=== PATIENT | male | born 1980 | race Caucasian/White ===

== ENCOUNTER 2019-12-04 23:41 | Emergency (ER) | payer OTHER, SELFPAY ==
[2019-12-04 23:45] VITALS: BP 132/84; PULSE 93; RESP 20; TEMP 36.6; O2SAT 99
--- NOTE | 2019-12-05 01:17 | ED.SKABFB ---
HPI - Skin/Abscess/Foreign Bdy General Chief complaint: Skin/Abscess/Foreign Body Stated complaint: facial swelling Time Seen by Provider: 12/05/19 01:14 Source: patient Mode of arrival: ambulatory Limitations: no limitations History of Present Illness HPI narrative: 39-year-old with no major medical problems here with complaints of left-sided facial swelling for past few days. Patient states that he accidentally nicked himself while he was shaving. Now just face is all swollen no previous history of any staph infections. Patient states that he has been applying ice. Denies any fever or chills. MD complaint: abscess/boil Onset (ago): day(s) Location: face (Left side of the face) Severity: moderate Severity scale (1-10): 4 Pain Consistency: constant Relieving factors: none Exacerbating factors: none Related Data Allergies Allergy/AdvReac Type Severity Reaction Status Date / Time codeine Allergy Mild Unknown Verified 12/04/19 23:43 erythromycin base Allergy Mild Unknown Verified 12/04/19 23:43 PROPOXYPHENE NAPSYLATE Allergy Unknown Unknown Uncoded 12/04/19 23:43 Review of Systems Review of Systems: All systems reviewed & are unremarkable except as noted in HPI and below Constitutional: Constitutional: Reports no additional constitutional complaints Eyes: Eyes: Reports no additional eye complaints ENT: Reports system reviewed and no additional complaints, except as documented Cardiovascular: Cardiovascular: Reports no additional cardiovascular complaints Respiratory: Respiratory: Reports no additional respiratory complaints Gastrointestinal: Gastrointestinal: Reports no additional gastrointestinal complaints PMFSH Past Medical History Medical History Back pain Dental abscess GERD (gastroesophageal reflux disease) Surgical History Surgical History Hx of appendectomy Hx of cholecystectomy Hx of right knee surgery Social History Social History Smoking status: Current every day smoker Gender identity (if verbalized by the patient): Male Exam Narrative: Exam Narrative: GENERAL: Well-appearing, well-nourished, and in no acute distress. HEAD: Normocephalic, atraumatic. There is a small boil on the left side of the face, the maxillary area is all erythematous and swollen but no definite abscess. Nontender to touch. EYES: PERRLA and EOMI. ENT: Nares clear, no rhinorrhea or epistaxis. Mucous membranes moist. NECK: Supple. CHEST: Clear to auscultation. No respiratory distress. HEART: Regular rate and rhythm. No murmur heard. Normal peripheral pulses.. EXTREMITIES: Normal range of motion. No edema. SKIN: Warm, dry, no rash. NEURO: No focal deficits. Alert and oriented x3. PSYCH: Normal mood and affect. Course Vital Signs Vital signs: Vital Signs Temperature 36.6 C 12/04/19 23:45 Pulse Rate 93 12/04/19 23:45 Respiratory Rate 12/04/19 23:45 Blood Pressure 132/84 12/04/19 23:45 Pulse Oximetry 99 12/04/19 23:45 Temperature 36.6 C 12/04/19 23:45 Pulse Rate 93 12/04/19 23:45 Respiratory Rate 12/04/19 23:45 Blood Pressure 132/84 12/04/19 23:45 Pulse Oximetry 99 12/04/19 23:45 MDM - Skin/Abscess/Foreign Bdy MDM Narrative Medical decision making narrative: Since his swelling is mild at this time however is mild swelling of the left side of the upper lip start him on oral antibiotic. Advised him to apply warm compress in case there is increased swelling or redness advised him to return to the ER forIV antibiotic Discharge Plan Discharge Clinical Impression: Cellulitis Patient Disposition: Home, Self-Care Condition: Stable Instructions: Antibiotic Form, Cellulitis (DC) Prescriptions: New clindamycin HCl 300 mg capsule 300 mg PO Q8H Qty: 30 RF: 0 ibuprofen 600 mg tablet 600 mg
== END 2019-12-05 01:36 | disposition home or self-care (01) ==
LOC: ANHED 12-05 01:24
PROVIDERS: Emergency Provider Family Medicine; PCP Pathology Hematology
DX: L03.211 Cellulitis of face (principal)
CPT/HCPCS: 99283

== ENCOUNTER 2020-10-11 10:52 | Emergency (ER) | payer OTHER, SELFPAY ==
[2020-10-11 10:59] VITALS: BP 137/89; PULSE 113; RESP 18; TEMP 36.6; O2SAT 98
--- NOTE | 2020-10-11 12:17 | ED.EXTPRO ---
HPI - Extremity Problem General Chief complaint: Recheck/Abnormal Lab/Rx Stated complaint: gout flare up Time Seen by Provider: 10/11/20 12:08 History of Present Illness HPI Narrative: Left foot pain for the past 3 days. Starts at the base of the fifth toe and radiates proximally. Severe. Similar to previous gout flares. He is not on any medications. Related Data Allergies Allergy/AdvReac Type Severity Reaction Status Date / Time codeine Allergy Mild Unknown Verified 10/11/20 11:17 erythromycin base Allergy Mild Unknown Verified 10/11/20 11:17 PROPOXYPHENE NAPSYLATE Allergy Unknown Unknown Uncoded 10/11/20 11:17 Review of Systems Review of Systems: All systems reviewed & are unremarkable except as noted in HPI and below Constitutional: Constitutional: Denies fever(s) Cardiovascular: Cardiovascular: Denies chest pain Respiratory: Respiratory: Denies dyspnea Gastrointestinal: Gastrointestinal: Denies nausea PMFSH Past Medical History Medical History Back pain Dental abscess GERD (gastroesophageal reflux disease) Surgical History Surgical History Hx of appendectomy Hx of cholecystectomy Hx of right knee surgery Social History Social History Smoking status: Current every day smoker Gender identity (if verbalized by the patient): Male Exam Const: General: no acute distress and alert Orientation/consciousness: patient oriented x3 HENMT: Head: normal to inspection Resp: Effort & Inspection: normal respiratory effort Auscultation: clear to auscultation bilaterally Cardio: Rate: regular rate Rhythm: regular rhythm Skin: General skin exam: normal color Rashes: no rashes Wounds: no wounds Neuro: General: patient oriented x3, moves all extremities and no focal motor deficits Extrem: Other: tender left lateral foot. Mild tophi formation. minimal swelling. No erythema. Course Vital Signs Vital signs: Vital Signs Temperature 36.6 C 10/11/20 10:59 Pulse Rate 113 H 10/11/20 10:59 Respiratory Rate 18 10/11/20 10:59 Blood Pressure 137/89 10/11/20 10:59 Pulse Oximetry 98 10/11/20 10:59 Temperature 36.6 C 10/11/20 10:59 Pulse Rate 98 10/11/20 12:33 Respiratory Rate 16 10/11/20 12:33 Blood Pressure 132/84 10/11/20 12:33 Pulse Oximetry 99 10/11/20 12:33 Discharge Plan Discharge Clinical Impression: Gout flare Qualifiers: Gout site: foot Patient Disposition: Home, Self-Care Condition: Stable Instructions: Gout (ED) Prescriptions: New hydrocodone-acetaminophen 5-325 mg tablet 1 tablet PO Q6H PRN (Reason: pain) Qty: 8 RF: 0 prednisone 20 mg tablet 40 mg PO DAILY 6 Days Qty: 12 RF: 0 Follow-up/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
[2020-10-11] MEDS: HYDROcodone/acetaminophen (*CRX) 5-325 MG TABLET 2 TAB PO (12:20)
[2020-10-11] MEDS: predniSONE 20 MG TABLET 40 MG PO (12:21)
[2020-10-11 12:33] VITALS: BP 132/84; PULSE 98; RESP 16; O2SAT 99
== END 2020-10-11 12:30 | disposition home or self-care (01) ==
PROVIDERS: Emergency Provider Emergency Medicine
DX: M10.9 Gout, unspecified (principal); K21.9 Gastro-esophageal reflux disease without esophagitis; F17.200 Nicotine dependence, unspecified, uncomplicated
CPT/HCPCS: 99283; A9270; J7512

== ENCOUNTER 2020-11-17 16:00 | Outpatient (CLI) | payer OTHER, SELFPAY ==
--- NOTE | ~2020-11-17 | US_ITS ---
EXAMINATION: US scrotum doppler DATE: 11/17/2020 17:03 INDICATION: Small left testicle. 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 TECHNIQUE: Grayscale and Doppler ultrasound images of the testes were obtained. COMPARISON: None. FINDINGS: The right testis measures 3.9 x 2.1 x 3.5. The left testis measures 4.9 x 2.1 x 1.8. The le ft testis has areas of hypoechogenicity. There is normal vascular flow to both testes. The right epid idymis is normal with normal vascular flow. The left epididymis is normal with normal vascular flow. There is no varicocele or hydrocele. IMPRESSION: 1. 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 Reviewed, dictated and finalized at location A.
== END 2020-11-17 16:01 | disposition home or self-care (01) ==
LOC: ANHIMG 16:08
PROVIDERS: PCP Emergency Medicine; Visit Provider Emergency Medicine
DX: N50.89 Other specified disorders of the male genital organs (principal)
CPT/HCPCS: 76870; 93976

== ENCOUNTER 2021-01-24 11:54 | Emergency (ER) | payer OTHER, SELFPAY ==
--- NOTE | ~2021-01-24 | XR_ITS ---
EXAMINATION: XR foot LT min 3V DATE: 01/24/2021 12:52 INDICATION: Nontraumatic left heel pain and erythema TECHNIQUE: Dorsoplantar, two oblique and lateral views of the left foot were obtained. COMPARISON: None. FINDINGS: There is valgus angulation at the left second distal interphalangeal joint which results from shorten ing of the lateral side of the middle phalanx which could be either developmental or sequela of old t rauma. Alignment is otherwise normal. No acute fracture. Joint spaces are normal. Small Achilles and plantar calcaneal spurs. No periosteal reaction or cortical erosions. Soft tissues are unremarkable. IMPRESSION: 1. Small Achilles and plantar calcaneal spurs. No acute osseous abnormality. Reviewed, dictated and finalized at location A.
[2021-01-24 12:02] VITALS: BP 129/88; PULSE 75; RESP 18; TEMP 35.8; O2SAT 99
--- NOTE | 2021-01-24 12:42 | ED.LOWEXIN ---
HPI - Extremity Injury (Lower) General Chief Complaint: Extremity Injury, Lower Stated Complaint: L heel injury Time Seen by Provider: 01/24/21 12:03 Source: patient Mode of arrival: ambulatory Limitations: no limitations History of Present Illness HPI Narrative: This is a 41 year old male that presents to the ER for left heel pain noted over the last couple of days. Reports an area of redness to the posterior foot. Reports the area is painful. No recent injury or trauma. Denies fever, decreased ROM or numbness. Related Data Allergies Allergy/AdvReac Type Severity Reaction Status Date / Time codeine Allergy Mild Unknown Verified 10/11/20 11:17 erythromycin base Allergy Mild Unknown Verified 10/11/20 11:17 PROPOXYPHENE NAPSYLATE Allergy Unknown Unknown Uncoded 10/11/20 11:17 Review of Systems Review of Systems: CONSTITUTIONAL: Denies fever SKIN: Reports redness MUSCULOSKELETAL: Denies joint pain, or myalgia. NEUROLOGIC: Denies numbness All systems reviewed & are unremarkable except as noted in HPI and below PMFSH Past Medical History Medical History (Updated 01/24/21 @ 14:25 by Mamta Malik PA-C) Back pain Dental abscess GERD (gastroesophageal reflux disease) Surgical History Surgical History Hx of appendectomy Hx of cholecystectomy Hx of right knee surgery Social History Social History Smoking status: Current every day smoker Gender identity (if verbalized by the patient): Male Exam Narrative: GENERAL: Well-appearing, well-nourished, and in no acute distress. HEAD: Normocephalic, atraumatic. EYES: EOMI. EXTREMITIES: Normal range of motion. No edema or obvious deformity. Normal DP pulses. Normal sensation. Area around the insertion of the Achilles tendon with mild erythema and swelling. Achilles tendon itself is not tender to palpation, without erythema or warmth SKIN: Warm, dry, no rash. NEURO: No focal deficits. Alert and oriented x3. PSYCH: Normal mood and affect Course Vital Signs Vital signs: Vital Signs Temperature 96.5 F L 01/24/21 12:02 Pulse Rate 75 01/24/21 12:02 Respiratory Rate 18 01/24/21 12:02 Blood Pressure 129/88 01/24/21 12:02 Pulse Oximetry 99 01/24/21 12:02 Temperature 96.5 F L 01/24/21 12:02 Pulse Rate 75 01/24/21 12:02 Respiratory Rate 18 01/24/21 12:02 Blood Pressure 129/88 01/24/21 12:02 Pulse Oximetry 99 01/24/21 12:02 Procedures Abscess I/D foot: Date of Incision: 01/24/21 Time of Incision: 14:22 Side (if applicable): left Local Anesthetic: lidocaine 1% and with epi Amount of anesthesia used (mL): 2 Technique: needle aspiration Packing used?: none I&D Results: Blood Abcess I&D Additional Comments: Attempt at I&D of a possible fluid collection produced only blood MDM - Extremity Injury (Lower) MDM Narrative Medical decision making narrative: Patient presents to the emergency department with an area of redness and swelling to the left foot. Patient is afebrile and nontoxic-appearing. Left foot x-ray shows Achilles and plantar calcaneal spurs. I did attempt at I&D of an area with possible fluid collection that produced only blood. No evidence of abscess at this time. Patient will be started on oral antibiotics for cellulitis. He is stable and felt appropriate for outpatient evaluation. He was given warnings to return to the ER Imaging Data Radiologist's impression: ITS Impressions Foot X-Ray 01/24/21 13:08 IMPRESSION: 1. Small Achilles and plantar calcaneal spurs. No acute osseous abnormality. Critical Care Time Critical Care Time Critical Care Time: No Discharge Plan Discharge Clinical Impression: Cellulitis Qualifiers: Site of cellulitis: extremity Site of cellulitis of extremity: lower extremity Laterality: left Qualified Code(s):
[2021-01-24] MEDS: KETOROLAC (*BKC) 60 MG/2 ML VIAL IM (12:55)
[2021-01-24 14:39] VITALS: BP 128/80; PULSE 73; RESP 18; O2SAT 99
== END 2021-01-24 14:40 | disposition home or self-care (01) ==
PROVIDERS: Emergency Provider Emergency Medicine; PCP Emergency Medicine
DX: L03.116 Cellulitis of left lower limb (principal); K21.9 Gastro-esophageal reflux disease without esophagitis; F17.200 Nicotine dependence, unspecified, uncomplicated; M77.32 Calcaneal spur, left foot
CPT/HCPCS: 10060; 73630; 96372; 99283; J1885

== ENCOUNTER 2021-03-09 15:39 | Outpatient (CLI) | payer OTHER, SELFPAY ==
--- NOTE | ~2021-03-09 | US_ITS ---
US retroperitoneal comp 03/09/2021 16:11 Procedure: Realtime transabdominal ultrasound of the kidneys and bladder. Indication: Microscopic hematuria Comparison: No prior studies for comparison. Findings: Renal echotexture is normal bilaterally without hydronephrosis, contour deforming mass or r enal calculus. The right kidney measures 12.6 cm and left kidney measures 11.3 cm. Bladder within no rmal limits. Impression: 1: Unremarkable renal ultrasound. No stones, masses or hydronephrosis. Reviewed, dictated and finalized at location A. SERVER Impression: 1: Unremarkable renal ultrasound. No stones, masses or hydronephrosis.
== END 2021-03-09 15:40 | disposition home or self-care (01) ==
LOC: ANHIMG 15:42
PROVIDERS: PCP Emergency Medicine; Visit Provider Urology
DX: R31.29 Other microscopic hematuria (principal)
CPT/HCPCS: 76770

== ENCOUNTER 2021-03-25 17:29 | Emergency (ER) | payer OTHER, SELFPAY ==
[2021-03-25 17:46] VITALS: BP 120/84; PULSE 87; RESP 16; TEMP 37.3; O2SAT 98
[2021-03-25 19:20] VITALS: BP 123/79; PULSE 91; TEMP 36.8; O2SAT 95
--- NOTE | 2021-03-25 20:45 | PC.NURSE ---
Call to waiting room, no answer.
--- NOTE | 2021-03-25 21:25 | PC.NURSE ---
no answer at 2123. pt was triaged
== END 2021-03-25 21:31 | disposition left against medical advice (07) ==
LOC: ANHED 21:31
PROVIDERS: PCP Emergency Medicine
DX: R50.9 Fever, unspecified (principal)
CPT/HCPCS: 99199; J7030

== ENCOUNTER → 2021-03-27 10:34 | Outpatient (CLI) | payer OTHER, SELFPAY ==
[2021-03-27 22:12] LABS: SARS-CoV-2 RNA PCR Positive
== END ==
PROVIDERS: PCP Emergency Medicine; Visit Provider Emergency Medicine
DX: U07.1 COVID-19 (principal)
CPT/HCPCS: C9803; U0003; U0005

== ENCOUNTER 2021-05-29 18:38 | Emergency (ER) | payer OTHER, SELFPAY ==
[2021-05-29 18:39] VITALS: BP 143/91; PULSE 105; RESP 20; TEMP 36.4; O2SAT 97
[2021-05-29] MEDS: TETANUS,DIPHTHERIA,AC PERTUSSIS ADULT (0.5 ML) BOOSTRIX IM (19:09)
--- NOTE | 2021-05-29 19:39 | ED.WOUNDLAC ---
HPI - Wound/Laceration General Chief Complaint: Wound/Laceration Stated Complaint: 3rd finger Laceration Time Seen by Provider: 05/29/21 18:42 History of Present Illness HPI narrative: 41-year-old male presents the emergency room with 2 lacerations to his left hand. Patient states that he was cutting pizza on the pizza cutter sliced his hand and second left finger. States that his tetanus is not up-to-date. Related Data Allergies Allergy/AdvReac Type Severity Reaction Status Date / Time codeine Allergy Mild Unknown Verified 10/11/20 11:17 erythromycin base Allergy Mild Unknown Verified 10/11/20 11:17 aspirin Allergy Swelling Verified 05/29/21 18:45 of Lip/Tongue/Throat PROPOXYPHENE NAPSYLATE Allergy Unknown Unknown Uncoded 10/11/20 11:17 Review of Systems Review of Systems: CONSTITUTIONAL: Denies fever, chills, or sweats. EYES: Denies visual changes, redness, or discharge. ENT: Denies rhinorrhea, congestion, sore throat, or otalgia. CARDIOVASCULAR: Denies chest pain, palpitations, or edema. RESPIRATORY: Denies cough or dyspnea. GASTROINTESTINAL: Denies abdominal pain, nausea, vomiting, or diarrhea. GENITOURINARY: Denies dysuria or hematuria. SKIN: Denies rash or itching. Laceration to left index finger and left hand MUSCULOSKELETAL: Denies back pain, joint pain, or myalgia. NEUROLOGIC: Denies headache, numbness, dizziness, or weakness. PSYCHIATRIC: Denies anxiety or depression. [facility] Past Medical History Medical History (Updated 05/29/21 @ 19:51 by Fili Moon APRN) Back pain Dental abscess GERD (gastroesophageal reflux disease) Surgical History Surgical History Hx of appendectomy Hx of cholecystectomy Hx of right knee surgery Social History Social History Smoking status: Current every day smoker Gender identity (if verbalized by the patient): Male Exam Narrative: GENERAL: Well-appearing, well-nourished, and in no acute distress. HEAD: Normocephalic, atraumatic. EYES: PERRLA and EOMI. ENT: Nares clear, no rhinorrhea or epistaxis. Mucous membranes moist. Oropharynx without tonsillar hypertrophy exudate or other lesions. Bilateral TMs pearly [place] nonbulging NECK: Supple. No adenopathy or masses. No carotid bruits or JVD CHEST: Clear to auscultation. No respiratory distress. No wheezes rales or rhonchi HEART: Regular rate and rhythm. No murmur heard. Normal peripheral pulses. ABDOMEN: Soft, nontender, nondistended, normal active bowel sounds. EXTREMITIES: Normal range of motion. No edema. SKIN: Warm, dry, no rash. 2-1/2 cm laceration to the palmar surface of the left index finger. 2 cm laceration to the palmar surface of the left hand NEURO: No focal deficits. Alert and oriented x3. PSYCH: Normal mood and affect. Course Vital Signs Vital signs: Vital Signs Temperature 36.4 C 05/29/21 18:39 Pulse Rate 105 H 05/29/21 18:39 Respiratory Rate 20 05/29/21 18:39 Blood Pressure 143/91 H 05/29/21 18:39 Pulse Oximetry 97 05/29/21 18:39 Temperature 36.4 C 05/29/21 18:39 Pulse Rate 105 H 05/29/21 18:39 Respiratory Rate 20 05/29/21 18:39 Blood Pressure 143/91 H 05/29/21 18:39 Pulse Oximetry 97 05/29/21 18:39 Procedures Laceration Laceration 1: Date: 05/29/21 Time: 19:47 Side (If applicable): left (index finger) Size (cm): 2.5 Description: linear Depth: simple, single layer Local Anesthetic: lidocaine 1% Amount of anesthesia used (mL): 4 ====== Skin Level ====== Skin layer closed with: nylon Size (cm): 5-0 Number of sutures: 5 Technique: simple, interrupted ====== Subcutaneous Layer ====== ====== Muscle Layer ====== ====== Tendon Layer ====== Laceration 2: Date: 05/29/21 Time: 19:49 Side (If applicable): left (hand)
== END 2021-05-29 19:59 | disposition home or self-care (01) ==
PROVIDERS: Emergency Provider Nurse Practitioner Family; PCP Emergency Medicine
DX: S61.412A Laceration without foreign body of left hand, initial encounter (principal); S61.211A Laceration without foreign body of left index finger without damage to nail, initial encounter; Z23 Encounter for immunization; K21.9 Gastro-esophageal reflux disease without esophagitis; W27.4XXA Contact with kitchen utensil, initial encounter; Y93.G1 Activity, food preparation and clean up; F17.200 Nicotine dependence, unspecified, uncomplicated
CPT/HCPCS: 12002; 90471; 90715; 99283

== ENCOUNTER 2021-06-07 09:35 | Emergency (ER) | payer OTHER, SELFPAY ==
--- NOTE | ~2021-06-07 | XR_ITS ---
XR knee RT 2V 06/07/2021 11:21 Indication: Right knee pain Procedure: 2 views right knee Comparison: No prior studies for comparison. Findings: Moderate joint effusion. No acute fracture or traumatic malalignment. No foreign bodies. Impression: 1: Moderate joint effusion. Reviewed, dictated and finalized at location A. Impression: 1: Moderate joint effusion.
[2021-06-07 10:00] VITALS: BP 116/63; PULSE 73; RESP 18; TEMP 36.6; O2SAT 97
--- NOTE | 2021-06-07 10:24 | PC.NURSE ---
EDP at bedside to assess pt.
[2021-06-07 10:42] VITALS: O2SAT 98
[2021-06-07 10:45] VITALS: O2SAT 96
--- NOTE | 2021-06-07 10:57 | ED.GENADULT ---
HPI - General Adult General Chief complaint: Extremity Injury, Lower Stated complaint: leg Time Seen by Provider: 06/07/21 09:46 Source: patient Mode of arrival: ambulatory Limitations: no limitations History of Present Illness HPI narrative: Pt is a 41 y/o gentleman who presented to the ER w/ c/o right knee and thigh tightness and pain. Patient state while at work yesterday he began having pain to his right knee and felt like his right thigh was swelling. Patient states as the day went on he continue to have increasing pain and swelling. Patient states he did take 600mg of ibuprofen w/o relief. Patient denies any recent injury or trauma to the area. Patient denies any recent travel or long periods of sitting or immobility. Patient states he did have arthroscopy to the right knee multiple years ago for meniscal repair. Related Data Allergies Allergy/AdvReac Type Severity Reaction Status Date / Time codeine Allergy Mild Unknown Verified 06/07/21 10:37 erythromycin base Allergy Mild Unknown Verified 06/07/21 10:37 aspirin Allergy Swelling Verified 06/07/21 10:37 of Lip/Tongue/Throat PROPOXYPHENE NAPSYLATE Allergy Unknown Unknown Uncoded 10/11/20 11:17 Review of Systems Review of Systems: All systems reviewed & are unremarkable except as noted in HPI and below (HPI) [facility] Past Medical History Medical History (Updated 06/07/21 @ 12:22 by Isabelle Lee APRN) Back pain Dental abscess GERD (gastroesophageal reflux disease) Surgical History Surgical History Hx of appendectomy Hx of cholecystectomy Hx of right knee surgery Social History Social History Smoking status: Current every day smoker Gender identity (if verbalized by the patient): Male Exam Const: General: no acute distress and alert Orientation/consciousness: patient oriented x3 HENMT: Head: normal to inspection Neck: Neck: normal visual inspection Resp: Effort & Inspection: normal respiratory effort Cardio: Rate: regular rate Rhythm: regular rhythm GI: GI Palp: Yes Soft to palpation Auscultation: normal bowel sounds Skin: General skin exam: normal color Neuro: General: patient oriented x3 Extrem: General: edema (to right knee ) right Other: decreased active and passive ROM to right knee Psych: Mental Status: mental status grossly normal Course Vital Signs Vital signs: Vital Signs Temperature 36.6 C 06/07/21 10:00 Pulse Rate 73 06/07/21 10:00 Respiratory Rate 18 06/07/21 10:00 Blood Pressure 116/63 06/07/21 10:00 Pulse Oximetry 97 06/07/21 10:00 Temperature 36.6 C 06/07/21 10:00 Pulse Rate 73 06/07/21 12:57 Respiratory Rate 18 06/07/21 12:57 Blood Pressure 134/85 06/07/21 12:57 Pulse Oximetry 100 06/07/21 12:57 Medical Decision Making MDM Narrative Medical decision making narrative: Patient has done well throughout ER visit. Well's DVT score 0. D-dimer negative. X-ray shows effusion. Will TRISTAN wrap and treat w/ NSAIDs at this time. Differential Diagnosis Differential Diagnosis: Knee effusion, Ligament injury, DVT Vital Signs Vital Signs: Vital Signs Temperature 36.6 C 06/07/21 10:00 Pulse Rate 73 06/07/21 10:00 Respiratory Rate 18 06/07/21 10:00 Blood Pressure 116/63 06/07/21 10:00 Pulse Oximetry 97 06/07/21 10:00 Temperature 36.6 C 06/07/21 10:00 Pulse Rate 73 06/07/21 12:57 Respiratory Rate 18 06/07/21 12:57 Blood Pressure 134/85 06/07/21 12:57 Pulse Oximetry 100 06/07/21 12:57 Lab Data Lab results reviewed: Yes I reviewed the patient's lab results. Result diagrams: 06/07/21 11:06 06/07/21 11:06 Labs: Lab Results 06/07/21 06/07/21 06/07/21 Range/Units 11:06 11:06 11:06 WBC 11.5 H (4.5-10.0) K/mm3 RBC 4.88 (4.6-6.20) M/mm3 Hgb 14.6 (14.0-18.0) g/dL Hct 44.1 (42.0
[2021-06-07 11:12] LABS: Basophils Percent Auto 0.3 % (0.2-1.2); Eosinophils Absolute Auto 0.1 K/mm3 (0-0.3); Eosinophils Percent Auto 0.9 % (0-4.4); Hematocrit 44.1 % (42.0-52.0); Hemoglobin 14.6 g/dL (14.0-18.0); Immature Granulocyte Absolute 0.03 K/mm3 (0.00-0.031); Immature Granulocyte Percent A 0.3 % (0-0.5); Lymphocytes Absolute Auto 2.44 K/mm3 (0.9-3.2); Lymphocytes Percent Auto 21.1 % (18.3-44.2); Mean Corpuscular HGB Conc 33.1 g/dl (32-36); Mean Corpuscular Hemoglobin 29.9 pg (26-34); Mean Corpuscular Volume 90.4 fl (80-100); Mean Platelet Volume 9.7 fl (7.4-10.4); Monocytes Absolute Auto 1.2 K/mm3 (0.1-0.6); Monocytes Percent Auto 10.5 % (2.6-8.5); Neutrophils Absolute Auto 7.7 K/mm3 (1.3-6.7); Neutrophils Percent Auto 66.9 % (45.5-73.1); Platelet Count Result 268 k/mm3 (150-375); Red Blood Count 4.88 M/mm3 (4.6-6.20); Red Cell Distribution Width 12.3 % (11.5-14.5); White Blood Count 11.5 K/mm3 (4.5-10.0)
--- NOTE | 2021-06-07 11:20 | PC.NURSE ---
Patient off unit to radiology for xray of knee.
[2021-06-07 11:22] LABS: Alanine Aminotransferase 24 U/L (4-50); Albumin Level 4.2 g/dL (3.5-5.1); Alkaline Phosphatase 66 U/L (38-126); Anion Gap 7 mmol/L (8-16); Aspartate Amino Transferase 21 U/L (17-59); Blood Urea Nitrogen 11 mg/dL (9-20); Calcium 8.5 mg/dL (8.4-10.2); Carbon Dioxide 28 mmol/L (22-30); Chloride 102 mmol/L (98-107); Creatine Kinase 47 U/L (55-170); Estimated CRCL calculation 116 ml/min; Estimated Glomerular Filt Rate > 60; Glucose 101 mg/dL (65-110); Potassium 3.9 mmol/L (3.4-5.0); Sodium 137 mmol/L (137-145)
[2021-06-07 11:25] LABS: D Dimer 0.31 ug/mL (<0.48)
[2021-06-07] MEDS: KETOROLAC 30 MG/ML VIAL (*BKC) IV PUSH (12:46)
--- NOTE | 2021-06-07 12:56 | PC.NURSE ---
Toradol given IM in R. Deltoid per EDP.
[2021-06-07 12:57] VITALS: BP 134/85; PULSE 73; RESP 18; O2SAT 100
== END 2021-06-07 12:59 | disposition home or self-care (01) ==
PROVIDERS: Emergency Provider Nurse Practitioner Adult Health; PCP Emergency Medicine
DX: M25.461 Effusion, right knee (principal); K21.9 Gastro-esophageal reflux disease without esophagitis; F17.200 Nicotine dependence, unspecified, uncomplicated
CPT/HCPCS: 36415; 73560; 80053; 82550; 85025; 85380; 96374; 99284; J1885

== ENCOUNTER 2021-08-15 22:15 | Emergency (ER) | payer OTHER, SELFPAY ==
--- NOTE | ~2021-08-15 | XR_ITS ---
XR hand LT min 3V DATE: 08/16/2021 00:31 INDICATION: Acute pain, swelling and warmth for one day, TECHNIQUE: 3 views COMPARISON: 03/28/2014 left wrist FINDINGS: Stable lucent lesion of the navicular bone with narrow zone of transition, sclerotic rim, c onsistent with benign stable process. Stable cystic lesion of lunate bone is noted as well. No fracture or dislocation, periosteal reaction or bone destruction. 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
[2021-08-15 22:21] VITALS: BP 148/85; PULSE 87; RESP 18; TEMP 36.6; O2SAT 98
--- NOTE | 2021-08-16 00:03 | ED.UPPEXIN ---
HPI - Extremity Injury (Upper) General Chief Complaint: Extremity Injury, Upper Stated Complaint: left hand swelling Time Seen by Provider: 08/15/21 22:45 History of Present Illness HPI narrative: 41-year-old male presents to the emergency room for evaluation of left hand pain and swelling since 3:00 this afternoon. Patient states soon thereafter his hand turned purple for about 2 hours. Patient states that 2 months ago he lacerated his left hand, on the palmar surface at the base of the left second digit. States when the sutures were removed he began experiencing a burning sensation that radiated into his finger. Patient was put on a course of gabapentin and a week later the pain was relieved. Patient now states that he has no feeling in his left second digit. Patient denies any new injury or trauma. Related Data Allergies Allergy/AdvReac Type Severity Reaction Status Date / Time codeine Allergy Mild Unknown Verified 08/15/21 22:15 erythromycin base Allergy Mild Unknown Verified 08/15/21 22:15 aspirin Allergy Swelling Verified 08/15/21 22:15 of Lip/Tongue/Throat PROPOXYPHENE NAPSYLATE Allergy Unknown Unknown Uncoded 10/11/20 11:17 Review of Systems Review of Systems: CONSTITUTIONAL: Denies fever, chills, or sweats. EYES: Denies visual changes, redness, or discharge. ENT: Denies rhinorrhea, congestion, sore throat, or otalgia. CARDIOVASCULAR: Denies chest pain, palpitations, or edema. RESPIRATORY: Denies cough or dyspnea. GASTROINTESTINAL: Denies abdominal pain, nausea, vomiting, or diarrhea. GENITOURINARY: Denies dysuria or hematuria. SKIN: Denies rash or itching. MUSCULOSKELETAL: Reports left hand pain and swelling NEUROLOGIC: Denies headache, numbness, dizziness, or weakness. PSYCHIATRIC: Denies anxiety or depression. [facility] Past Medical History Medical History (Updated 08/16/21 @ 02:02 by Fili Moon APRN) Back pain Dental abscess GERD (gastroesophageal reflux disease) Surgical History Surgical History Hx of appendectomy Hx of cholecystectomy Hx of right knee surgery Social History Social History Smoking status: Current every day smoker Gender identity (if verbalized by the patient): Male Exam Narrative: GENERAL: Well-appearing, well-nourished, and in no acute distress. HEAD: Normocephalic, atraumatic. EYES: PERRLA and EOMI. CHEST: Clear to auscultation. No respiratory distress. No wheezes rales or rhonchi HEART: Regular rate and rhythm. No murmur heard. Normal peripheral pulses. ABDOMEN: Soft, nontender, nondistended, normal active bowel sounds. EXTREMITIES: Left hand: Diffuse swelling of the hand that does not extend past the radiocarpal joint, diffuse tenderness of the first, third, fourth and fifth digits. Capillary refill is intact in all 5 digits. Radial pulses bounding and regular. SKIN: Warm, dry, no rash. NEURO: No focal deficits. Alert and oriented x3. PSYCH: Normal mood and affect. Course Vital Signs Vital signs: Vital Signs Temperature 36.6 C 08/15/21 22:21 Pulse Rate 87 08/15/21 22:21 Respiratory Rate 18 08/15/21 22:21 Blood Pressure 148/85 H 08/15/21 22:21 Pulse Oximetry 98 08/15/21 22:21 Temperature 36.6 C 08/15/21 22:21 Pulse Rate 87 08/15/21 22:21 Respiratory Rate 18 08/15/21 22:21 Blood Pressure 148/85 H 08/15/21 22:21 Pulse Oximetry 98 08/15/21 22:21 MDM - Extremity Injury (Upper) MDM Narrative Medical decision making narrative: 41-year-old male presented the emergency room for evaluation of left hand pain and swelling that began abruptly earlier this afternoon. Patient denies any predisposing factors that led to the swelling. Patient denies any injury or trauma. X-ray shows no acute bony abnormality. CBC shows a slightly elevated white count. CMP was on remarkable. D-dimer was negative. CRP and sed rate
[2021-08-16 01:15] VITALS: BP 116/64; PULSE 83; RESP 20; O2SAT 95
[2021-08-16 01:29] LABS: Basophils Percent Auto 0.3 % (0.2-1.2); Eosinophils Absolute Auto 0.1 K/mm3 (0-0.3); Eosinophils Percent Auto 0.9 % (0-4.4); Hematocrit 45.5 % (42.0-52.0); Hemoglobin 15.1 g/dL (14.0-18.0); Immature Granulocyte Absolute 0.04 K/mm3 (0.00-0.031); Immature Granulocyte Percent A 0.3 % (0-0.5); Lymphocytes Absolute Auto 2.48 K/mm3 (0.9-3.2); Lymphocytes Percent Auto 17.8 % (18.3-44.2); Mean Corpuscular HGB Conc 33.2 g/dl (32-36); Mean Corpuscular Hemoglobin 29.2 pg (26-34); Mean Corpuscular Volume 87.8 fl (80-100); Mean Platelet Volume 10.2 fl (7.4-10.4); Monocytes Absolute Auto 1.3 K/mm3 (0.1-0.6); Monocytes Percent Auto 9.2 % (2.6-8.5); Neutrophils Percent Auto 71.5 % (45.5-73.1); Platelet Count Result 272 k/mm3 (150-375); Red Blood Count 5.18 M/mm3 (4.6-6.20); Red Cell Distribution Width 12.5 % (11.5-14.5)
[2021-08-16 01:44] LABS: Alanine Aminotransferase 30 U/L (6-50); Albumin Level 4.5 g/dL (3.5-5.1); Alkaline Phosphatase 68 U/L (38-126); Anion Gap 7 mmol/L (8-16); Aspartate Amino Transferase 29 U/L (17-59); Blood Urea Nitrogen 16 mg/dL (9-20); Calcium 8.9 mg/dL (8.4-10.2); Carbon Dioxide 28 mmol/L (22-30); Chloride 104 mmol/L (98-107); D Dimer 0.36 ug/mL (<0.48); Estimated CRCL calculation 115 ml/min; Estimated Glomerular Filt Rate > 60; Glucose 90 mg/dL (65-110); Potassium 3.4 mmol/L (3.4-5.0); Sodium 139 mmol/L (137-145)
[2021-08-16 02:17] VITALS: BP 148/78; PULSE 79; RESP 20; O2SAT 96
== END 2021-08-16 02:18 | disposition home or self-care (01) ==
PROVIDERS: Emergency Provider Nurse Practitioner Family; PCP Emergency Medicine
DX: M79.642 Pain in left hand (principal); K21.9 Gastro-esophageal reflux disease without esophagitis; M10.9 Gout, unspecified
CPT/HCPCS: 36415; 73130; 80053; 85025; 85380; 96374; 99284; J1100

== ENCOUNTER 2022-07-06 12:57 | Emergency (ER) | payer OTHER, SELFPAY ==
--- NOTE | ~2022-07-06 | US_ITS ---
EXAMINATION: US venous doppler [facility] DATE: 07/06/2022 14:19 INDICATION: Lower limb pain and swelling TECHNIQUE: Grayscale ultrasound images without and with compression and Doppler ultrasound images of the left lower extremity veins were obtained. COMPARISON: None. FINDINGS: The visualized portions of left common femoral vein, profunda (deep) femoral vein, femoral vein, popl iteal vein, peroneal veins, posterior tibial veins, gastrocnemius vein and greater saphenous vein out flow are patent. 5.1 x 1.4 cm Pham's cyst with associated synovitis at the left popliteal fossa. IMPRESSION: 1. No deep venous thrombosis in the left lower limb. 2. Moderate-sized Pham's cyst. Reviewed, dictated and finalized at location A.
--- NOTE | ~2022-07-06 | XR_ITS ---
XR knee LT 3V DATE: 07/06/2022 15:25 INDICATION: Left knee pain, swelling, limited range of motion. No known injury. TECHNIQUE: 3 views including crosstable lateral COMPARISON: None FINDINGS: There is prominent distention of the suprapatellar bursa consistent with joint effusion. Anna int spaces are well preserved. Minimal periarticular spurring of the patellofemoral and medial compar tments. No fracture, dislocation, periosteal reaction or bone destruction. No radiopaque intra-articular loos e body or chondrocalcinosis. IMPRESSION: Prominent suprapatellar knee joint effusion Mild osteoarthritis Reviewed, dictated and finalized at location L.
[2022-07-06 12:59] VITALS: BP 117/74; PULSE 108; RESP 18; TEMP 36.4; O2SAT 97
--- NOTE | 2022-07-06 14:50 | PC.NURSE ---
patient given gown to change into at this time
--- NOTE | 2022-07-06 15:28 | ED.EXTPRO ---
HPI - Extremity Problem General Chief complaint: Extremity Problem,Nontraumatic Stated complaint: Left knee Time Seen by Provider: 07/06/22 14:43 Source: patient Mode of arrival: ambulatory Limitations: no limitations History of Present Illness HPI Narrative: This is a 42-year-old male with chief complaint of the left knee swelling onset yesterday. Patient states he just woke up with the swelling and it has been uncomfortable. He reports some chronic pain in the knee and does not feel the pain has acutely increased. He states that his primary care doctor sent him to rule out a blood clot. He denies any injury or trauma to the knee. States the swelling is all above the kneecap. Denies erythema or warmth. States it is not tender. He does report some difficulty with range of motion due to the swelling. No further site of pain or injury. Denies numbness or weakness. Denies calf swelling. Related Data Allergies Allergy/AdvReac Type Severity Reaction Status Date / Time codeine Allergy Mild Unknown Verified 08/15/21 22:15 erythromycin base Allergy Mild Unknown Verified 08/15/21 22:15 aspirin Allergy Swelling Verified 08/15/21 22:15 of Lip/Tongue/Throat PROPOXYPHENE NAPSYLATE Allergy Unknown Unknown Uncoded 10/11/20 11:17 Review of Systems Review of Systems: CONSTITUTIONAL: Denies fever, chills, or sweats. EYES: Denies visual changes, redness, or discharge. ENT: Denies rhinorrhea, congestion, sore throat, or otalgia. CARDIOVASCULAR: Denies chest pain, palpitations, or edema. RESPIRATORY: Denies cough or dyspnea. GASTROINTESTINAL: Denies abdominal pain, nausea, vomiting, or diarrhea. GENITOURINARY: Denies dysuria or hematuria. SKIN: Denies rash or itching. Denies erythema. MUSCULOSKELETAL: See HPI NEUROLOGIC: Denies headache, numbness, dizziness, or weakness. PSYCHIATRIC: Denies anxiety or depression. [facility] Past Medical History Medical History (Updated 07/06/22 @ 16:51 by Pato Boo PA-C) Back pain Dental abscess GERD (gastroesophageal reflux disease) Surgical History Surgical History Hx of appendectomy Hx of cholecystectomy Hx of right knee surgery Social History Social History (Reviewed 08/16/21 @ 00:06 by IFRAH Flores Smoking status: Current every day smoker Gender identity (if verbalized by the patient): Male Exam Narrative: GENERAL: Well-appearing, well-nourished, and in no acute distress. HEAD: Normocephalic, atraumatic. EYES: PERRLA and EOMI. ENT: Nares clear, no rhinorrhea or epistaxis. Mucous membranes moist. Oropharynx without tonsillar hypertrophy exudate or other lesions. NECK: Supple. No adenopathy or masses. CHEST: No respiratory distress. Clear to auscultation. No wheezes rales or rhonchi HEART: Regular rate and rhythm. No murmur heard. Normal peripheral pulses. ABDOMEN: Soft, nontender, nondistended, normal active bowel sounds. EXTREMITIES: Left knee: Suprapatellar swelling noted. There is no overlying skin changes. Minimal tenderness noted. Slightly reduced flexion and extension due to the swelling. Right knee: Benign. MSK exam is otherwise benign. Normal range of motion. No calf edema. Ambulatory with cane. SKIN: Warm, dry, no rash. NEURO: Alert and oriented x3. No focal deficits. PSYCH: Normal mood and affect. Course Vital Signs Vital signs: Vital Signs Temperature 97.6 F 07/06/22 12:59 Pulse Rate 108 H 07/06/22 12:59 Respiratory Rate 07/06/22 12:59 Blood Pressure 117/74 07/06/22 12:59 Pulse Oximetry 97 07/06/22 12:59 Oxygen Delivery Room Air 07/06/22 12:59 Temperature 97.6 F 07/06/22 12:59 Pulse Rate 108 H 07/06/22 12:59 Respiratory Rate 07/06/22 12:59 Blood Pressure 117/74 07/06/22 12:59 Pulse Oximetry 97 07/06/22 12:59 Oxygen Delivery Room Air 07/06/22 12:59 MDM - Extremity (Nontraumatic) MDM Narrative Medical decision making narra
== END 2022-07-06 18:01 | disposition home or self-care (01) ==
PROVIDERS: Emergency Provider Physician Assistant; PCP Emergency Medicine
DX: M25.462 Effusion, left knee (principal); M17.12 Unilateral primary osteoarthritis, left knee; K21.9 Gastro-esophageal reflux disease without esophagitis; Z90.49 Acquired absence of other specified parts of digestive tract; F17.200 Nicotine dependence, unspecified, uncomplicated; M71.22 Synovial cyst of popliteal space [Baker], left knee
CPT/HCPCS: 73562; 93971; 99284

== ENCOUNTER 2024-01-04 12:58 | Emergency (ER) | payer SELFPAY ==
--- NOTE | ~2024-01-04 | XR_ITS ---
XR knee RT 3V Ordering provider: Walter Gaffney APRN History: . right knee pain, no injury . Comparison: June 07, 2021 FINDINGS: BONES: No acute fracture or dislocation. JOINT SPACES: Normal. SOFT TISSUES: Fluid seen in the suprapatellar bursa. IMPRESSION: No acute osseous abnormality right knee. Reviewed, dictated and finalized at location A.
[2024-01-04 12:59] VITALS: BP 117/78; PULSE 98; RESP 18; TEMP 36.6; O2SAT 100
--- NOTE | 2024-01-04 13:18 | ED.LOWEXIN ---
HPI - Extremity Injury (Lower) General Chief Complaint: Extremity Injury, Lower Stated Complaint: RLE pain Time Seen by Provider: 01/04/24 13:07 History of Present Illness HPI Narrative: 43-year-old male presents with right knee pain and states it is locked. Patient states symptoms started while driving back from [place] 2 days ago. Patient has a history of meniscus repair to this knee. Patient denies any tremor under Onset (ago): day(s) (2) Related Data Allergies Allergy/AdvReac Type Severity Reaction Status Date / Time codeine Allergy Mild Unknown Verified 01/04/24 13:25 erythromycin base Allergy Mild Unknown Verified 01/04/24 13:25 aspirin Allergy Swelling Verified 01/04/24 13:25 of Lip/Tongue/Throat PROPOXYPHENE NAPSYLATE Allergy Unknown Unknown Uncoded 01/04/24 13:25 Review of Systems Review of Systems: A 10 system review of systems was completed on the patient and is negative except for what is stated in the HPI. Nursing and ancillary documentation was reviewed. [facility] Past Medical History Medical History (Updated 01/04/24 @ 14:19 by Walter Gaffney APRN) Back pain Dental abscess GERD (gastroesophageal reflux disease) Surgical History Surgical History Hx of appendectomy Hx of cholecystectomy Hx of right knee surgery Social History Social History Smoking status: Current every day smoker Gender identity (if verbalized by the patient): Male Exam Narrative: GENERAL: Well-appearing, well-nourished, and in no acute distress. HEAD: Normocephalic, atraumatic. EYES: PERRLA and EOMI. ENT: Nares clear, no rhinorrhea or epistaxis. Mucous membranes moist. NECK: Supple. CHEST: Clear to auscultation. No respiratory distress. HEART: Regular rate and rhythm. No murmur heard. Normal peripheral pulses. ABDOMEN: Soft, nontender, nondistended, normal active bowel sounds. EXTREMITIES: Decreased movement of her right knee. Patient screamed in pain with flexion No edema. SKIN: Warm, dry, no rash. NEURO: No focal deficits. Alert and oriented x3. PSYCH: Normal mood and affect. Course Course Emergency Course: Imaging ordered over right knee. Pain medication of muscle relaxer order Vital Signs Vital signs: Vital Signs Temperature 36.6 C 01/04/24 12:59 Pulse Rate 98 01/04/24 12:59 Respiratory Rate 18 01/04/24 12:59 Blood Pressure 117/78 01/04/24 12:59 Pulse Oximetry 100 01/04/24 12:59 Oxygen Delivery Room Air 01/04/24 12:59 Temperature 36.6 C 01/04/24 12:59 Pulse Rate 98 01/04/24 12:59 Respiratory Rate 18 01/04/24 12:59 Blood Pressure 117/78 01/04/24 12:59 Pulse Oximetry 100 01/04/24 12:59 Oxygen Delivery Room Air 01/04/24 12:59 MDM - Extremity Injury (Lower) MDM Narrative Medical decision making narrative: Imaging is negative. Will place on crutches, knee immobilizer, and referred to Ortho Differential Diagnosis Differential diagnosis: Likely other (Knee strain versus fracture versus osteoarthritis) Discharge Plan Discharge Clinical Impression: Muscle strain of right knee Patient Disposition: Home, Self-Care Condition: Stable Instructions: Antibiotic Form, Muscle Strain (ED) Additional Instructions: Take medications as prescribed Return for worsening symptoms Follow-up with ortho as instructed Prescriptions: New cyclobenzaprine 10 mg tablet 10 mg PO TID PRN (Reason: muscle spasm) Qty: 12 0RF hydrocodone-acetaminophen 5-325 mg tablet 1 tablet PO Q4H PRN (Reason: pain) Qty: 12 0RF No Action cephalexin 500 mg capsule 500 mg PO Q12H 7 Days Qty: 14 0RF indomethacin 50 mg capsule 50 mg PO TID 5 Days Qty: 15 0RF Rx Instructions: administer with food or milk naproxen 500 mg tablet 500 mg PO BID PRN (Reason: pain) Qty: 30 0RF Follow-up/Referrals: Greg Villarreal M
[2024-01-04] MEDS: HYDROcodone/acetaminophen (*CRX) 5-325 MG TABLET 1 TAB PO (13:26)
[2024-01-04] MEDS: CYCLOBENZAPRINE HCL 10 MG TABLET PO (13:26)
[2024-01-04 15:20] VITALS: BP 122/75; PULSE 83; RESP 20; TEMP 36.6; O2SAT 98
== END 2024-01-04 15:12 | disposition home or self-care (01) ==
PROVIDERS: Emergency Provider Nurse Practitioner Family; PCP Emergency Medicine
DX: S86.911A Strain of unspecified muscle(s) and tendon(s) at lower leg level, right leg, initial encounter (principal); K21.9 Gastro-esophageal reflux disease without esophagitis; X58.XXXA Exposure to other specified factors, initial encounter
CPT/HCPCS: 73562; 99283; A9270

== ENCOUNTER 2024-09-23 22:09 | Emergency (ER) | payer SELFPAY ==
--- OUTSIDE RECORDS SUMMARY | 2024-09-23 22:11 | XMS_ITS | Clinical Summary ---
Author Organization [facility] Address [address] [place] [id number] Care Team Providers Care Theatrical Performer Name Role Phone Unavailable Primary Care Provider Unavailabl e Social History Tobacco Use Types Packs/Day Years Used Date Smoking Tobacco: Never Assessed Sex and Gender Information Value Date Recorded Sex Assigned at Not on file Legal Sex Male 7:11 PM CDT Gender Identity Not on file Sexual Orientation Not on file Plan of Treatment Health Maintenance Due Date Last Done Comments Colorectal Cancer Screening Colonoscopy (10 Years) 1978 Annual Physical 1981 Hepatitis C 01/05/1996 DTaP, Tdap and Td Vaccines ( 1 - Tdap) 1997 Hepatitis B Vaccines (1 of 3 - 19+ 3-dose series) 1997 COVID-19 Vaccine (2023-2 5 season) 2023 Meningococcal B Vaccine Aged Out No l onger eligible based on patient's age to complete this topic Meningococcal Vaccine Aged Out No matilda joanna eligible based on patient's age to complete this topic Pneumococcal Vaccine: Pediat rics (0 to 5 Years) and At-Risk Patients (6 to 49 Years) Aged Out No longer eligible b ased on patient's age to complete this topic RSV Immunizations Under 20 Months Aged Out No longer eligible based on patient's age to complete this topic
--- OUTSIDE RECORDS SUMMARY | 2024-09-23 22:11 | XMS_ITS | Referral Summary ---
Author Organization [facility] Address [address] [place] [id number] Care Team Providers Care Metal Refiner Name Role Phone Greg Villarreal MD Primary Care Provider [phone] Allergies No known active allergies Medications ketorolac (TORADOL) 10 mg tablet Take 1 tablet (10 mg total) by mouth every 6 (six) hours as needed for pain 10 tablet 08/15/2022 Active traMADoL (ULTRAM) 50 mg tablet Take 1 tablet (50 mg total) by mouth every 6 (six) hours 6 tablet 08/15/2022 Active Active Problems No known active problems Social History Tobacco Use Types Packs/Day Years Used Date Smoking Tobacco: Never Tobacco Cessation:Counseling Given: Not Answered Personal Safety Answer Date Recorded Have you ever been in or are you currently in a harmful physical or emotional relationship or is someone making you feel afraid or unsafe? Denies 08/15/2022 Sex and Gender Information Value Date Recorded Sex Assigned at Not on file Legal Sex Male 11:22 AM COMMUNITY HEALTH REPRESENTATIVE Gender Identity Not on file Sexual Orientation Not on file Last Filed Vital Signs Vital Sign Reading Time Taken Comments Blood Pressure 134/73 08/15/2022 3:57 AM CDT Pulse 85 08/15/2022 3:57 AM CDT Temperature 36.9 C (98.4 F) 08/15/2022 1:27 AM CDT Respiratory Rate 16 08/15/2022 3:57 AM CDT Oxygen Saturation 98% 08/15/2022 3:57 AM CDT Inhaled Oxygen Concentration - - Weight 109.8 kg (242 lb) 08/15/2022 1:27 AM CDT Height 171.5 cm (5' 7.5) 08/15/2022 1:27 AM CDT Body Mass Index 37.34 08/15/2022 1:27 AM CDT Plan of Treatment Not on file Insurance [facility] Care Teams Metal Refiner Relationship Specialty Start Date End Date Greg Villarreal MD PCP - General Emergency Medicine 06/10/21
--- OUTSIDE RECORDS SUMMARY | 2024-09-23 22:11 | XMS_ITS | Clinical Summary ---
Author Organization [facility] [employer] Address [address] [place] [address] Care Team Providers Care House Nurse Name Role Phone Unavailable Primary Care Provider Unavailabl e Source Comments [facility] [employer],non-owned Affiliates and Associated Physician Practices is amultiple site organization consisting of ambulatory clinics and hospital sitesin [place], [place], [place] and [place]. This disclosure is being madepursuant to the Care Everywhere program and may not contain all information available regarding this patient. Last updated 17.[facility] [employer] Allergies No known active allergies Medications * Be aware that medications may not be up to date on this document. Alwaysverify current medications with the patient. vitamin D3 (CHOLECALCIFEROL ) 100 UNITS TABS Take 100 Units by mouth once daily Active allopurinol (ZYLOPRIM) 100 MG tablet Take 100 mg by mouth once daily Active Family History Medical History Relation Name Comments CAD (Coronary Artery Disease) Father CVA Father Diabetes; unknown type Mother Nephrolithiasis Mother Relation Name Status Comments Father Mother Social History Tobacco Use Types Packs/Day Years Used Date Smoking Tobacco: Former Smokeless Tobacco: Never Alcohol Use Standard Drinks/Week Comments Yes 0 (1 standard drink = 0.6 oz pur e alcohol) WEEKLY Sex and Gender Information Value Date Recorded Sex Assigned at Not on file Legal Sex Male 10:34 AM CDT Gender Identity Not on file Sexual Orientation Not on file Last Filed Vital Signs Vital Sign Reading Time Taken Comments Blood Pressure 130/83 02/26/2021 2:47 PM HEALTH DATA ADMINISTRATOR Pulse 79 02/26/2021 2:47 PM HEALTH DATA ADMINISTRATOR Temperature 37.2 C (98.9 F) 02/26/2021 2:47 PM HEALTH DATA ADMINISTRATOR Respiratory Rate - - Oxygen Saturation 97% 02/26/2021 2:47 PM HEALTH DATA ADMINISTRATOR Inhaled Oxygen Concentration - - Weight 123.8 kg (273 lb) 02/26/2021 2:47 PM HEALTH DATA ADMINISTRATOR Height 170.2 cm (5' 7) 02/26/2021 2:47 PM HEALTH DATA ADMINISTRATOR Body Mass Index 42.76 02/26/2021 2:47 PM HEALTH DATA ADMINISTRATOR Plan of Treatment Health Maintenance Due Date Last Done Comments COLOGUARD (AGES 45-75) - COL ON CA SCREENING 1978 COLON MONITORING 1978 COLONOSCOPY - COLON CA SCREENING 1978 CT COLONOGRAPHY - COLON CA SCREENING 1978 Colorectal Cancer Screening 1978 FIT - COLON CA SCREENING 1978 FLEX SIG - COLON CA SCREENING 1978 LIPID TESTING 1978 HIV SCREENING 1993 HEPATITIS C SCREENING 12/31/1995 DTAP/TDAP/TD VACCINES (1 - Tdap) 1997 HEPATITIS B VACCINE (1 of 3 - 19+ 3-dose series) 1997 SCREENING FOR DIABETES 02/26/2021 COVID-19 VACCINE (1 - 2023-2 5 season) 2023 DEPRESSION SCREENING 03/21/2024 INFLUENZA VACCINE (#1) 2024 ZOSTER VACCINE (1 of 2) 01/05/2028 HIB VACCINE Aged Out No longer eligi ble based on patient's age to complete this topic HPV VACCINE Aged Out No longer eligi ble based on patient's age to complete this topic MENINGOCOCCAL (Group B) VACC INE SHARED DECISION-MAKING Aged Out No longer eligibl e based on patient's age to complete this topic MENINGOCOCCAL GROUPS A/C/Y/W VACCINE Aged Out No longer eligible b ased on patient's age to complete this topic PNEUMOCOCCAL VACCINE Aged Out No long er eligible based on patient's age to complete this topic Insurance [facility]
--- OUTSIDE RECORDS SUMMARY | 2024-09-23 22:11 | XMS_ITS | Clinical Summary ---
Author Organization [facility] Address [address] [place] [id number] Care Team Providers Care Gas Operator Name Role Phone Greg Villarreal MD Primary Care Provider [phone] Allergies No known active allergies Medications ketorolac [...] on file Legal Sex Male 11:22 AM ASSISTANT Gender Identity Not on file Sexual Orientation Not on file Obstetrics History Last Filed Vital Signs Vital Sign Reading [...] 08/15/2022 1:27 AM CDT Plan of Treatment Health Maintenance Due Date Last Done Comments Colon Cancer Screening-Colonoscopy 1978 Depression Screening 1978 Hepatitis C Screening 1978 Hepatitis B Screening 01/05/1996 Regular Well Visit/Exam 18-64 01/05/1996 Covid-19 Vaccine ( season) 2023 07/24/2020, 06/26/2020 Influenza Vaccine (Season Ended) 2024 01/02/2021, 12/21/2019, 12/18/2014, Additional history exists DTaP/Tdap/Td Vaccine (2 - Td or Tdap) 05/30/2031 05/29/2021 HPV Vaccines Aged Out No longer eligi ble based on patient's age to complete this topic Pneumococcal vaccine <65 Aged Out No longer eligible based on patient's age to complete this topic Insurance [facility] Care Teams Gas Operator Relationship Specialty Start Date End Date Greg Villarreal MD PCP - General Emergency Medicine 06/10/21
[2024-09-23 22:18] VITALS: BP 145/72; PULSE 89; RESP 21; TEMP 36.4; O2SAT 95
[2024-09-23] MEDS: CLINDAMYCIN HCL 150 MG CAP 450 MG PO (23:00)
--- OUTSIDE RECORDS SUMMARY | 2024-09-23 23:03 | XMS_ITS | Clinical Summary ---
Author Organization [facility] Address [address] [place] [address] Care Team Providers Care Scraper Burrer Name Role Phone Unavailable Primary Care Provider Unavailabl e Source Comments [facility],non-owned Affiliates and Associated Physician Practices is amultiple site organization consisting of ambulatory clinics and hospital sitesin [place], [place], [place] and [place]. This disclosure is being madepursuant to the Care Everywhere program and may not contain all information available regarding this patient. Last updated 17.[facility] Allergies No known active allergies Medications * [...] Comments Blood Pressure 130/83 02/26/2021 2:47 PM PNEUMATIC SYSTEMS OPERATOR Pulse 79 02/26/2021 2:47 PM PNEUMATIC SYSTEMS OPERATOR Temperature 37.2 C (98.9 F) 02/26/2021 2:47 PM PNEUMATIC SYSTEMS OPERATOR Respiratory Rate - - Oxygen Saturation 97% 02/26/2021 2:47 PM PNEUMATIC SYSTEMS OPERATOR Inhaled Oxygen Concentration - - Weight 123.8 kg (273 lb) 02/26/2021 2:47 PM PNEUMATIC SYSTEMS OPERATOR Height 170.2 cm (5' 7) 02/26/2021 2:47 PM PNEUMATIC SYSTEMS OPERATOR Body Mass Index 42.76 02/26/2021 2:47 PM PNEUMATIC SYSTEMS OPERATOR Plan of Treatment Health Maintenance Due Date [...] patient's age to complete this topic Insurance [facility]
--- OUTSIDE RECORDS SUMMARY | 2024-09-23 23:03 | XMS_ITS | Clinical Summary ---
Author Organization [facility] Address [address] [place] [id number] Care Team Providers Care Petroleum Plant Operator Name Role Phone Unavailable Primary Care Provider [...]
--- NOTE | 2024-09-23 23:06 | ED.SKABFB ---
HPI - Skin/Abscess/Foreign Bdy General Chief complaint: Skin/Abscess/Foreign Body Stated complaint: spider bite Time Seen by Provider: 09/23/24 22:51 History of Present Illness HPI narrative: Patient presents here with concern for spider bite, he has a lesion on his right hand with some swelling and redness and pain. Denies any fevers or chills Related Data Allergies Allergy/AdvReac Type Severity Reaction Status Date / Time codeine Allergy Mild Unknown Verified 09/23/24 22:21 erythromycin base Allergy Mild Unknown Verified 09/23/24 22:21 aspirin Allergy Swelling Verified 09/23/24 22:21 of Lip/Tongue/Throat PROPOXYPHENE NAPSYLATE Allergy Unknown Unknown Uncoded 09/23/24 22:21 Review of Systems Review of Systems: All systems reviewed & are unremarkable except as noted in HPI and below PMFSH Past Medical History Medical History (Updated 09/23/24 @ 22:58 by Margarita Lubin MD) Back pain GERD (gastroesophageal reflux disease) Dental abscess Surgical History Surgical History Hx of right knee surgery Hx of cholecystectomy Hx of appendectomy Social History Social History Smoking status: Current every day smoker Gender identity (if verbalized by the patient): Male Exam Narrative: EXAMINATION OF ORGAN SYSTEMS/BODY AREAS: Constitutional: Vital signs per nursing GENERAL:[No acute distress, non-toxic appearing.] HEAD: Normal with no signs of head trauma. EYES: EOMI, conjunctiva normal ENT: Hearing grossly intact LUNGS: Nonlabored breathing. HEART: [Regular rate and rhythm], normal radial pulse ABD: Nondistended EXT: Normal range of motion; swelling of right hand with some slight induration and tenderness to the dorsal aspect of the right hand with small abrasion overlying; minimal serosanguineous discharge without any purulence, no fluctuance SKIN: See above NEURO: [Alert and oriented x 3. No gross focal sensory or strength deficits.] PSYCH: Normal affect Course Vital Signs Vital signs: Vital Signs Temperature 97.6 F 09/23/24 22:18 Pulse Rate 89 09/23/24 22:18 Respiratory Rate 21 H 09/23/24 22:18 Blood Pressure 145/72 H 09/23/24 22:18 Pulse Oximetry 95 09/23/24 22:18 Oxygen Delivery Room Air 09/23/24 22:18 Temperature 97.6 F 09/23/24 22:18 Pulse Rate 89 09/23/24 22:18 Respiratory Rate 21 H 09/23/24 22:18 Blood Pressure 145/72 H 09/23/24 22:18 Pulse Oximetry 95 09/23/24 22:18 Oxygen Delivery Room Air 09/23/24 22:18 MDM - Skin/Abscess/Foreign Bdy MDM Narrative Medical decision making narrative: MEDICAL DECISION MAKING AND COURSE IN THE ED WITH INTERPRETATION/REVIEW OF DIAGNOSTIC STUDIES: Electronic medical record was reviewed. Patient presented to the ED with complaint of painful skin rash. Vitals [were within acceptable limits]. Physical exam revealed area of tenderness and induration consistent with cellulitis, without fluctuance that may benefit from drainage. [Patient was given clindamycin here and a course to continue at home.] The patient is discharged home in stable condition. I have asked the patient to return to the emergency department for worsening pain, worsening and increasing size of skin infection, fevers/chills, and pain with movement of joints. The patient is instructed to follow up with [PCP] in [2] days. Patient verbalized understanding. Discharge Plan Discharge Clinical Impression: Cellulitis Patient Disposition: Home Condition: Stable Instructions: Antibiotic Form, Cellulitis (ED) Additional Instructions: Please follow-up with primary care doctor, take medications as prescribed, if the swelling gets much worse or you have trouble and pain moving your hand or wrist, come back to the hospital. Patient Language: Puerto Rican Prescriptions: New clindamycin HCl [Cleocin HCl] 150 mg capsule 450 mg PO Q8H 7 Days Qty: 63 0RF No Action cephalexin 500 mg capsule 500 mg PO Q12H 7 Days Qty: 14 0RF indomethacin 50 mg capsule 50 mg PO TID 5 Days Qty: 15 0RF Rx Instructions: administer with food or milk naproxen 500 mg tablet 500 mg PO BID PRN (Reason: pain) Qty: 30 0RF cyclobenzaprine 10 mg tablet 10 mg PO TID PRN (Reason: muscle spasm) Qty: 12 0RF hydrocodone-acetaminophen 5-325 mg tablet 1 tablet PO Q4H PRN (Reason: pain) Qty: 12 0RF Follow-up/Referrals: Greg Villarreal MD [Primary Care Provider] -
[2024-09-23 23:11] VITALS: BP 142/94; PULSE 82; RESP 16; O2SAT 99
== END 2024-09-23 23:12 | disposition home or self-care (01) ==
PROVIDERS: Emergency Provider Emergency Medicine; PCP Emergency Medicine
DX: L03.113 Cellulitis of right upper limb (principal); K21.9 Gastro-esophageal reflux disease without esophagitis
CPT/HCPCS: 99283

== ENCOUNTER 2024-10-04 23:23 | Emergency (ER) | payer SELFPAY ==
[2024-10-04 23:24] VITALS: BP 138/93; PULSE 99; RESP 16; TEMP 37.2; O2SAT 97
--- OUTSIDE RECORDS SUMMARY | 2024-10-04 23:25 | XMS_ITS | Clinical Summary ---
Author Organization [facility] Address [address] [place] [address] Care Team Providers Care Wirer Helper Name Role Phone Unavailable Primary Care Provider Unavailabl e Source Comments [facility],non-owned Affiliates and Associated Physician Practices is amultiple site organization consisting of ambulatory clinics and hospital sitesin [place], [place], [place] and [place]. This disclosure is being madepursuant to the Care Everywhere program and may not contain all information available regarding this patient. Last updated 17.[facility] Allergies No known active allergies Medications * [...] Comments Blood Pressure 130/83 02/26/2021 2:47 PM ACID DIPPER Pulse 79 02/26/2021 2:47 PM ACID DIPPER Temperature 37.2 C (98.9 F) 02/26/2021 2:47 PM ACID DIPPER Respiratory Rate - - Oxygen Saturation 97% 02/26/2021 2:47 PM ACID DIPPER Inhaled Oxygen Concentration - - Weight 123.8 kg (273 lb) 02/26/2021 2:47 PM ACID DIPPER Height 170.2 cm (5' 7) 02/26/2021 2:47 PM ACID DIPPER Body Mass Index 42.76 02/26/2021 2:47 PM ACID DIPPER Plan of Treatment Health Maintenance Due Date [...] patient's age to complete this topic Insurance [facility]
--- OUTSIDE RECORDS SUMMARY | 2024-10-04 23:25 | XMS_ITS | Clinical Summary ---
Author Organization [facility] Address [address] [place] [address] Care Team Providers Care Online Marketing Manager Name Role Phone Unavailable Primary Care Provider [...]
--- OUTSIDE RECORDS SUMMARY | 2024-10-04 23:25 | XMS_ITS | Referral Summary ---
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
--- OUTSIDE RECORDS SUMMARY | 2024-10-04 23:25 | XMS_ITS | Clinical Summary ---
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
[2024-10-05 02:29] VITALS: BP 127/86; PULSE 76; RESP 18; O2SAT 97
--- NOTE | 2024-10-05 02:53 | ED_ITS ---
HPI - Extremity Problem General Chief complaint: Extremity Problem,Nontraumatic Stated complaint: L foot and leg swollen; denies any injury Time Seen by Provider: 10/05/24 02:30 History of Present Illness HPI Narrative: 44-year-old otherwise healthy male presenting to the emergency department for evaluation of left foot and ankle swelling radiating towards his calf. Ongoing for last 3 days and worsening. No history of DVT or PE. No history of long travel or anticoagulation use. No surgical history. No trauma or injury. Isolated swelling is to the left side and patient is concerned about a blood clot. No family history of DVTs or thrombophilias to his knowledge. He does not take any chronic medications. Was otherwise in his normal state of health. No other symptoms or medical complaints at this time. Related Data Allergies Allergy/AdvReac Type Severity Reaction Status Date / Time codeine Allergy Mild Unknown Verified 10/04/24 23:24 erythromycin base Allergy Mild Unknown Verified 10/04/24 23:24 aspirin Allergy Swelling Verified 10/04/24 23:24 of Lip/Tongue/Throat PROPOXYPHENE NAPSYLATE Allergy Unknown Unknown Uncoded 10/04/24 23:24 Review of Systems 2 Review of Systems: As reviewed above in HPI [facility] Past Medical History Medical History (Updated 10/05/24 @ 03:32 by Christopher Ponce MD) Back pain GERD (gastroesophageal reflux disease) Dental abscess Surgical History Surgical History Hx of right knee surgery Hx of cholecystectomy Hx of appendectomy Social History Social History Smoking status: Current every day smoker Gender identity (if verbalized by the patient): Male Exam 2 Narrative: GENERAL: Well-appearing, blue hair HEAD: [Normocephalic, atraumatic.] EYES: [PERRLA and EOMI.] ENT: Very poor dentition, moist mucous membranes NECK: Supple. CHEST: [Clear to auscultation. No respiratory distress.] HEART: [Regular rate and rhythm]. No murmur heard. [Normal peripheral pulses.] ABDOMEN: [Soft, nondistended], [nontender], [No rigidity or guarding] EXTREMITIES: Calf asymmetry with swelling to the ankle on the left side contralateral leg without any appreciable swelling. Good range of motion, no pain with palpation of the calf or ankle. No overlying skin changes. SKIN: Warm, dry, no rash. NEURO: [No focal deficits]. Alert and oriented [x3.] PSYCH: [Normal mood and affect.] Course Vital Signs Vital signs: Vital Signs Temperature 37.2 C 10/04/24 23:24 Pulse Rate 99 10/04/24 23:24 Respiratory Rate 16 10/04/24 23:24 Blood Pressure 138/93 H 10/04/24 23:24 Pulse Oximetry 97 10/04/24 23:24 Oxygen Delivery Room Air 10/04/24 23:24 Temperature 37.2 C 10/04/24 23:24 Pulse Rate 76 10/05/24 02:29 Respiratory Rate 18 10/05/24 02:29 Blood Pressure 127/86 10/05/24 02:29 Pulse Oximetry 97 10/05/24 02:29 Oxygen Delivery Room Air 10/05/24 02:29 MDM - Extremity (Nontraumatic) MDM Narrative Medical decision making narrative: 44-year-old otherwise healthy male presenting to the emergency department for evaluation of left foot and ankle swelling radiating towards his calf. Ongoing for last 3 days and worsening. No history of DVT or PE. No history of long travel or anticoagulation use. No surgical history. No trauma or injury. Isolated swelling is to the left side and patient is concerned about a blood clot. No family history of DVTs or thrombophilias to his knowledge. He does not take any chronic medications. Was otherwise in his normal state of health. No other symptoms or medical complaints at this time. Examination shows Calf asymmetry with swelling to the ankle on the left side, contralateral leg without any appreciable swelling. Good range of motion, no pain with palpation of the calf or ankle. No overlying skin changes. He is hemodynamically stable at any tachycardia or fever. Does have clinical exam findings of potential DVT. No risk factors and low Wells criteria. Will proceed with dimer and laboratory assessments. We do not have ultrasound capabilities at this time in the emergency department and we discussed next steps including outpatient ultrasound if dimer is elevated. Patient comfortable with the plan. Patient's dimer is mildly elevated, given a 1 milligram/kilogram dose of Lovenox here in the emergency department and prescription for ultrasound to be obtained this morning out outpatient radiology suite. Patient was given instructions on how to obtain this ultrasound and discharged with return precautions. Lab Data 10/05/24 02:48 10/05/24 02:48 Labs: Lab Results 10/05/24 Range/Units 02:48 WBC 10.6 H (4.5-10.0) K/mm3 RBC 4.76 (4.6-6.20) M/mm3 Hgb 13.7 L (14.0-18.0) g/dL Hct 41.7 L (42.0-52.0) % MCV 87.6 (80-100) fl MCH 28.8 (26-34) pg MCHC 32.9 (32-36) g/dl RDW 12.1 (11.5-14.5) % Plt Count 327 (150-375) k/mm3 MPV 9.8 (7.4-10.4) fl Immature Gran % (Auto) 0.3 (0-0.5) % Neut % (Auto) 53.3 (45.5-73.1) % Lymph % (Auto) 30.9 (18.3-44.2) % Maverick % (Auto) 12.9 H (2.6-8.5) % Eos % (Auto) 2.4 (0-4.4) % Baso % (Auto) 0.2 (0.2-1.2) % Lymph # (Auto) 3.26 H (0.9-3.2) K/mm3 Maverick # (Auto) 1.4 H (0.1-0.6) K/mm3 Eos # (Auto) 0.3 (0-0.3) K/mm3 Baso # (Auto) 0.0 (0.0-0.1) K/mm3 Abs Immat Gran (auto) 0.03 (0.00-0.031) K/mm3 Absolute Neuts (auto) 5.6 (1.3-6.7) K/mm3 Absolute Nucleated RBC 0.000 (0.0-0.012) K/mm3 Nucleated RBC % 0.0 (0.0-0.2) % PT 13.8 (11.1-14.7) Seconds INR 1.0 APTT 29.7 (22.3-36.8) Seconds D-Dimer 0.72 H (<0.48) ug/mL Sodium 141 (137-145) mmol/L Potassium 3.5 (3.4-5.0) mmol/L Chloride 106 (98-107) mmol/L Carbon Dioxide 26 (22-30) mmol/L Anion Gap 9 (4-12) mmol/L BUN 17 (9-20) mg/dL Creatinine 0.93 (0.7-1.3) mg/dL Estim Creat Clear Calc 100 ml/min Estimated GFR > 60 (59 - ) Glucose 100 (65-110) mg/dL Calcium 9.2 (8.4-10.2) mg/dL Discharge Plan Discharge Clinical Impression: Left leg swelling, D-dimer, elevated Patient Disposition: Home Condition: Stable Instructions: Antibiotic Form, Deep Vein Thrombosis (DC), Leg Edema (ED) Additional Instructions: Your blood work does have a positive D-dimer test and combined with your symptoms on the left leg could be a sign of a blood clot. We do not have ultrasound overnight today so we will send you home with an outpatient prescription for a DVT study this morning or at her earliest convenience. We have given you a dose of Lovenox which is a blood thinning medication to prevent blood clot progression in the meantime. Return with any emergent concerns otherwise get the ultrasound done and they will contact you with results and next steps. Patient Language: Tajik Prescriptions: No Action cephalexin 500 mg capsule 500 mg PO Q12H 7 Days Qty: 14 0RF indomethacin 50 mg capsule 50 mg PO TID 5 Days Qty: 15 0RF Rx Instructions: administer with food or milk naproxen 500 mg tablet 500 mg PO BID PRN (Reason: pain) Qty: 30 0RF clindamycin HCl [Cleocin HCl] 150 mg capsule 450 mg PO Q8H 7 Days Qty: 63 0RF cyclobenzaprine 10 mg tablet 10 mg PO TID PRN (Reason: muscle spasm) Qty: 12 0RF hydrocodone-acetaminophen 5-325 mg tablet 1 tablet PO Q4H PRN (Reason: pain) Qty: 12 0RF Other Ambulatory Orders: US venous doppler LE LT (Routine) Timeframe: 1 Day Location: Determined by Patient Ordered By: Christopher Ponce Follow-up/Referrals: Greg Villarreal MD [Primary Care Provider] - 3 Days (ER follow up) Time of Disposition: 03:37
[2024-10-05 02:56] LABS: Hematocrit 41.7 % (42.0-52.0); Hemoglobin 13.7 g/dL (14.0-18.0); Immature Granulocyte Percent A 0.3 % (0-0.5); Lymphocytes Absolute Auto 3.26 K/mm3 (0.9-3.2); Mean Corpuscular HGB Conc 32.9 g/dl (32-36); Mean Corpuscular Hemoglobin 28.8 pg (26-34); Mean Corpuscular Volume 87.6 fl (80-100); Nucleated Red Blood Cells Absolute Auto 0.000 K/mm3 (0.0-0.012); Nucleated Red Blood Cells Perc 0.0 % (0.0-0.2); Platelet Count Result 327 k/mm3 (150-375); Red Blood Count 4.76 M/mm3 (4.6-6.20); White Blood Count 10.6 K/mm3 (4.5-10.0)
[2024-10-05 03:10] LABS: INR 1.0; Prothrombin Time 13.8 Seconds (11.1-14.7)
[2024-10-05 03:11] LABS: Partial Thromboplastin Time 29.7 Seconds (22.3-36.8)
[2024-10-05 03:15] LABS: Anion Gap 9 mmol/L (4-12); Blood Urea Nitrogen 17 mg/dL (9-20); Calcium 9.2 mg/dL (8.4-10.2); Carbon Dioxide 26 mmol/L (22-30); Chloride 106 mmol/L (98-107); Estimated CRCL calculation 100 ml/min; Estimated Glomerular Filt Rate > 60; Glucose 100 mg/dL (65-110); Potassium 3.5 mmol/L (3.4-5.0); Sodium 141 mmol/L (137-145)
--- OUTSIDE RECORDS SUMMARY | 2024-10-05 03:42 | XMS_ITS | Clinical Summary ---
Author Organization [facility] Address [address] [facility] [place] [address] Care Team Providers Care Wine Consultant Name Role Phone Unavailable Primary Care Provider Unavailabl e Source Comments [facility],non-owned Affiliates and Associated Physician Practices is amultiple site organization consisting of ambulatory clinics and hospital sitesin [place], [place], [place] and [place]. This disclosure is being madepursuant to the Care Everywhere program and may not contain all information available regarding this patient. Last updated 17.[facility] Allergies No known active allergies Medications * [...] Comments Blood Pressure 130/83 02/26/2021 2:47 PM EDGE TRIMMING MACHINE OPERATOR Pulse 79 02/26/2021 2:47 PM EDGE TRIMMING MACHINE OPERATOR Temperature 37.2 C (98.9 F) 02/26/2021 2:47 PM EDGE TRIMMING MACHINE OPERATOR Respiratory Rate - - Oxygen Saturation 97% 02/26/2021 2:47 PM EDGE TRIMMING MACHINE OPERATOR Inhaled Oxygen Concentration - - Weight 123.8 kg (273 lb) 02/26/2021 2:47 PM EDGE TRIMMING MACHINE OPERATOR Height 170.2 cm (5' 7) 02/26/2021 2:47 PM EDGE TRIMMING MACHINE OPERATOR Body Mass Index 42.76 02/26/2021 2:47 PM EDGE TRIMMING MACHINE OPERATOR Plan of Treatment Health Maintenance Due [...] patient's age to complete this topic Insurance [facility]
--- OUTSIDE RECORDS SUMMARY | 2024-10-05 03:42 | XMS_ITS | Clinical Summary ---
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
--- OUTSIDE RECORDS SUMMARY | 2024-10-05 03:42 | XMS_ITS | Clinical Summary ---
Author Organization [facility] Address [address] [place] [address] Care Team Providers Care Facsimile Machine Operator Name Role Phone Unavailable Primary Care [...]
--- OUTSIDE RECORDS SUMMARY | 2024-10-05 03:42 | XMS_ITS | Referral Summary ---
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
[2024-10-05] MEDS: ENOXAPARIN 100 MG/ML SYRINGE SUB-Q (03:43)
== END 2024-10-05 03:48 | disposition home or self-care (01) ==
LOC: ANHED 10-05 03:40
PROVIDERS: Emergency Provider Student in an Organized Health Care Education/Training Program; PCP Emergency Medicine
DX: R22.42 Localized swelling, mass and lump, left lower limb (principal); R79.1 Abnormal coagulation profile; K21.9 Gastro-esophageal reflux disease without esophagitis; F17.210 Nicotine dependence, cigarettes, uncomplicated; Z90.49 Acquired absence of other specified parts of digestive tract
CPT/HCPCS: 36415; 80048; 85025; 85380; 85610; 85730; 96372; 99283; J1650

== ENCOUNTER 2024-10-05 07:30 | Outpatient (CLI) | payer SELFPAY ==
--- NOTE | ~2024-10-05 | US_ITS ---
LEFT LOWER EXTREMITY VENOUS ULTRASOUND Ordering provider: Christopher Ponce MD History: . M79.89 - Other specified soft tissue disorders . Comparison: None. FINDINGS: --COMMON FEMORAL: Patent and free of thrombus. Normal compressibility, phasic flow and augmentation. --PROXIMAL SUPERFICIAL FEMORAL: Patent and free of thrombus. Normal compressibility, phasic flow and augmentation. --DISTAL SUPERFICIAL FEMORAL: Patent and free of thrombus. Normal compressibility, phasic flow and au gmentation. --POPLITEAL: Patent and free of thrombus. Normal compressibility, phasic flow and augmentation. --POSTERIOR TIBIAL: Patent and free of thrombus. Normal compressibility, phasic flow and augmentation . IMPRESSION: Negative left lower extremity venous US. No deep vein thrombosis. Reviewed, dictated and finalized at location A.
--- OUTSIDE RECORDS SUMMARY | 2024-10-05 07:39 | XMS_ITS | Clinical Summary ---
Author Organization [facility] Address [address] [place] [address] Care Team Providers Care Toy Assembler Name Role Phone Unavailable Primary Care Provider Unavailabl e Source Comments [facility],non-owned Affiliates and Associated Physician Practices is amultiple site organization consisting of ambulatory clinics and hospital sitesin [place], [place], [place] and [place]. This disclosure is being madepursuant to the Care Everywhere program and may not contain all information available regarding this patient. Last updated 17.[facility] Allergies No known active allergies Medications * [...] Comments Blood Pressure 130/83 02/26/2021 2:47 PM BACKHAUL DRIVER Pulse 79 02/26/2021 2:47 PM BACKHAUL DRIVER Temperature 37.2 C (98.9 F) 02/26/2021 2:47 PM BACKHAUL DRIVER Respiratory Rate - - Oxygen Saturation 97% 02/26/2021 2:47 PM BACKHAUL DRIVER Inhaled Oxygen Concentration - - Weight 123.8 kg (273 lb) 02/26/2021 2:47 PM BACKHAUL DRIVER Height 170.2 cm (5' 7) 02/26/2021 2:47 PM BACKHAUL DRIVER Body Mass Index 42.76 02/26/2021 2:47 PM BACKHAUL DRIVER Plan of Treatment Health Maintenance Due Date [...] patient's age to complete this topic Insurance [facility]
--- OUTSIDE RECORDS SUMMARY | 2024-10-05 07:39 | XMS_ITS | Clinical Summary ---
Author Organization 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
--- OUTSIDE RECORDS SUMMARY | 2024-10-05 07:39 | XMS_ITS | Referral Summary ---
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
--- OUTSIDE RECORDS SUMMARY | 2024-10-05 07:39 | XMS_ITS | Clinical Summary ---
Author Organization [facility] Address [address] [place] [id number] Care Team Providers Care Speech Therapist Technician Name Role Phone Unavailable Primary Care Provider [...]
== END 2024-10-05 07:31 | disposition home or self-care (01) ==
PROVIDERS: PCP Emergency Medicine; Visit Provider Student in an Organized Health Care Education/Training Program
DX: M79.89 Other specified soft tissue disorders (principal)
CPT/HCPCS: 93971

== ENCOUNTER 2024-12-29 09:14 | Emergency (ER) | payer SELFPAY ==
--- NOTE | ~2024-12-29 | US_ITS ---
LEFT LOWER EXTREMITY VENOUS DUPLEX Clinical History: h/o DVT, leg swelling COMPARISON: 10/05/2024 TECHNIQUE: Grayscale, color, duplex/spectral Doppler sonography left leg FINDINGS: Left leg common femoral, femoral, popliteal, and calf veins compressible and color Doppler patent. Normal augmentation with distal compression. No internal echoes. IMPRESSION: 1. No left leg DVT. Reviewed, dictated and finalized at location R. IMPRESSION: 1. No left leg DVT.
--- OUTSIDE RECORDS SUMMARY | 2024-12-29 09:16 | XMS_ITS | Clinical Summary ---
Author Organization [facility] Address [address] [facility] [place] [address] Care Team Providers Care Mechanic Marine Engine Name Role Phone Unavailable Primary Care Provider Unavailabl e Source Comments [facility],non-owned Affiliates and Associated Physician Practices is amultiple site organization consisting of ambulatory clinics and hospital sitesin [place], [place], [place] and [place]. This disclosure is being madepursuant to the Care Everywhere program and may not contain all information available regarding this patient. Last updated 17.[facility] Allergies No known active allergies Medications * [...] Comments Blood Pressure 130/83 02/26/2021 2:47 PM CRUSHER FEEDER Pulse 79 02/26/2021 2:47 PM CRUSHER FEEDER Temperature 37.2 C (98.9 F) 02/26/2021 2:47 PM CRUSHER FEEDER Respiratory Rate - - Oxygen Saturation 97% 02/26/2021 2:47 PM CRUSHER FEEDER Inhaled Oxygen Concentration - - Weight 123.8 kg (273 lb) 02/26/2021 2:47 PM CRUSHER FEEDER Height 170.2 cm (5' 7) 02/26/2021 2:47 PM CRUSHER FEEDER Body Mass Index 42.76 02/26/2021 2:47 PM CRUSHER FEEDER Plan of Treatment Health Maintenance Due Date [...] 3-dose series) 1997 SCREENING FOR DIABETES 02/26/2021 DEPRESSION SCREENING 03/21/2024 COVID-19 VACCINE (1 - 2023-2 5 season) 2024 INFLUENZA VACCINE (#1) 2024 ZOSTER VACCINE (1 [...] patient's age to complete this topic Insurance [facility]
--- OUTSIDE RECORDS SUMMARY | 2024-12-29 09:16 | XMS_ITS | Clinical Summary ---
Author Organization [facility] Address [address] [place] [id number] Care Team Providers Care Machinery Engineer Name Role Phone Unavailable Primary Care Provider [...] - 19+ 3-dose series) 1997 COVID-19 Vaccine ( - 2023-2 5 season) 2024 Influenza Adult (#1) 2024 Meningococcal B Vaccine Aged Out No l [...]
--- OUTSIDE RECORDS SUMMARY | 2024-12-29 09:16 | XMS_ITS | Clinical Summary ---
Author Organization [facility] Address [address] [id number] Care Team Providers Care Corn Grower Name Role Phone Greg Villarreal MD Primary Care Provider [phone] Allergies No known active allergies Medications ketorolac [...] on file Legal Sex Male 11:22 AM [employer] O[employer] Gender Identity Not on file Sexual Orientation [...] Visit/Exam 18-64 01/05/1996 Covid-19 Vaccine ( season) 2024 07/24/2020, 06/26/2020 Influenza Vaccine (#1) 2024 , 12/21/2019, 12/18/2014, Additional history exists DTaP/Tdap/Td Vaccine (2 - Td or Tdap) 05/30/2031 05/29/2021 HPV Vaccines Aged Out No longer eligi ble based on patient's age to complete this topic Pneumococcal vaccine <65 Aged Out No longer eligible based on patient's age to complete this topic Insurance [facility] Care Teams Corn Grower Relationship Specialty Start Date End Date Greg Villarreal MD PCP - General Emergency Medicine 06/10/21
[2024-12-29 09:18] VITALS: BP 147/87; PULSE 96; RESP 18; TEMP 36.4; O2SAT 97
[2024-12-29] MEDS: KETOROLAC 30 MG/ML VIAL (*BKC) 15 MG IM (12:08)
--- OUTSIDE RECORDS SUMMARY | 2024-12-29 12:08 | XMS_ITS | Clinical Summary ---
Author Organization [facility] Address [address] [place] [address] Care Team Providers Care Svp Name Role Phone Unavailable Primary Care Provider Unavailabl e Source Comments [facility],non-owned Affiliates and Associated Physician Practices is amultiple site organization consisting of ambulatory clinics and hospital sitesin [place], [place], [place] and [place]. This disclosure is being madepursuant to the Care Everywhere program and may not contain all information available regarding this patient. 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
--- OUTSIDE RECORDS SUMMARY | 2024-12-29 12:08 | XMS_ITS | Clinical Summary ---
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
--- NOTE | 2024-12-29 13:18 | ED_ITS ---
HPI - Extremity Problem General Chief complaint: Extremity Problem,Nontraumatic Stated complaint: left leg swelling, pain Time Seen by Provider: 12/29/24 11:50 History of Present Illness HPI Narrative: For last few days patient has had increasing pain to the left knee, does have a history of arthritis, also has history of DVT and wants to make sure there is not a blood clot. No recent injury Related Data Allergies Allergy/AdvReac Type Severity Reaction Status Date / Time codeine Allergy Mild Unknown Verified 12/29/24 09:21 erythromycin base Allergy Mild Unknown Verified 12/29/24 09:21 aspirin Allergy Swelling Verified 12/29/24 09:21 of Lip/Tongue/Throat acetaminophen (From AdvReac Unknown Unknown Verified 12/29/24 09:21 Darvocet-N) propoxyphene (From AdvReac Unknown Unknown Verified 12/29/24 09:21 Darvocet-N) Review of Systems Review of Systems: All systems reviewed & are unremarkable except as noted in HPI and below PMFSH Past Medical History Medical History (Updated 12/29/24 @ 12:02 by Margarita Lubin MD) Back pain GERD (gastroesophageal reflux disease) Dental abscess Surgical History Surgical History Hx of right knee surgery Hx of cholecystectomy Hx of appendectomy Social History Social History Smoking status: Current every day smoker Gender identity (if verbalized by the patient): Male Exam Narrative: EXAMINATION OF ORGAN SYSTEMS/BODY AREAS: Constitutional: Vital signs per nursing GENERAL:[No acute distress, non-toxic appearing.] HEAD: Normal with no signs of head trauma. EYES: EOMI, conjunctiva normal ENT: Hearing grossly intact LUNGS: Nonlabored breathing. HEART: [Regular rate and rhythm], normal strong DP pulse with good cap refill to toes ABD: [Soft], [nontender to palpation] EXT: Normal range of motion; painless range of motion of knee and hip and ankle SKIN: [No rashes or lesions.] NEURO: [Alert and oriented x 3. No gross focal sensory or strength deficits.] PSYCH: Normal affect Course Vital Signs Vital signs: Vital Signs Temperature 97.5 F L 12/29/24 09:18 Pulse Rate 96 10/11/25 09:18 Respiratory Rate 18 12/29/24 09:18 Blood Pressure 147/87 H 12/29/24 09:18 Pulse Oximetry 97 12/29/24 09:18 Oxygen Delivery Room Air 12/29/24 09:18 Temperature 97.5 F L 12/29/24 09:18 Pulse Rate 96 12/29/24 09:18 Respiratory Rate 18 12/29/24 09:18 Blood Pressure 147/87 H 12/29/24 09:18 Pulse Oximetry 97 12/29/24 09:18 Oxygen Delivery Room Air 12/29/24 09:18 MDM - Extremity (Nontraumatic) MDM Narrative Medical decision making narrative: Patient presenting here with atraumatic left leg pain, he is concerned about possible DVT, he does have history of hepatitis. He does have some pain on palpation to the left knee but otherwise no obvious swelling of the leg, he is neurovascularly intact. Normal range of motion passively. No overlying redness of the skin or signs of infection. DVT ultrasound here thankfully negative. Did offer x-ray were additional imaging, patient does not have insurance, he had no recent trauma so unlikely osseous abnormality, declines x-ray for now. Will trial muscle relaxants, course of steroids, with follow-up to Orthopedics and return precautions. Patient agreeable to plan. Discharge Plan Discharge Clinical Impression: Acute knee pain Patient Disposition: Home Condition: Stable Instructions: Knee Pain (ED) Additional Instructions: Try the meds as prescribed, continue with the ibuprofen, and if your symptoms worsen, come back to the ER. Patient Language: Vietnamese Prescriptions: New prednisone 20 mg tablet 40 mg PO DAILY 4 Days Qty: 8 0RF methocarbamol 750 mg tablet 750 mg PO TID PRN (Reason: muscle spasm) Qty: 30 0RF No Action cephalexin 500 mg capsule 500 mg PO Q12H 7 Days Qty: 14 0RF indomethacin 50 mg capsule 50 mg PO TID 5 Days Qty: 15 0RF Rx Instructions: administer with food or milk naproxen 500 mg tablet 500 mg PO BID PRN (Reason: pain) Qty: 30 0RF clindamycin HCl [Cleocin HCl] 150 mg capsule 450 mg PO Q8H 7 Days Qty: 63 0RF cyclobenzaprine 10 mg tablet 10 mg PO TID PRN (Reason: muscle spasm) Qty: 12 0RF hydrocodone-acetaminophen 5-325 mg tablet 1 tablet PO Q4H PRN (Reason: pain) Qty: 12 0RF Follow-up/Referrals: Marcelo Sal MD [Physician, Orthopedics] - 2 Days Greg Villarreal MD [Primary Care Provider, Family Practice] Stand Alone Forms: Work/School Release IP
== END 2024-12-29 12:12 | disposition home or self-care (01) ==
LOC: ANHED 12:06
PROVIDERS: Emergency Provider Emergency Medicine; PCP Emergency Medicine
DX: M25.562 Pain in left knee (principal); K21.9 Gastro-esophageal reflux disease without esophagitis; F17.200 Nicotine dependence, unspecified, uncomplicated; Z90.49 Acquired absence of other specified parts of digestive tract; Z86.718 Personal history of other venous thrombosis and embolism
CPT/HCPCS: 93971; 96372; 99284; J1885; J7512